=== PATIENT | female | born 1955 | race Caucasian/White ===

== ENCOUNTER → 2017-04-20 | Outpatient (REF) ==
[2017-04-20 04:47] LABS: CALCIUM 9.2 mg/dL (8.4-10.2); CREATININE, serum 0.87 mg/dL (0.52-1.25); POTASSIUM 4.5 mmol/L (3.4-5.0)
== END ==
LOC: ZCOL.LAB 04:36
PROVIDERS: Internal Medicine
DX: I11.0 Hypertensive heart disease with heart failure (principal); I50.9 Heart failure, unspecified

== ENCOUNTER → 2017-05-03 | Outpatient (CLI) | payer MEDICARE, MEDICAID ==
[2017-05-03 06:54] LABS: ALBUMIN 3.1 gm/dL (3.5-5.0); BILIRUBIN,TOTAL 0.4 mg/dL (0.0-1.0); CALCIUM 9.1 mg/dL (8.4-10.2); CREATININE, serum 0.74 mg/dL (0.52-1.25); POTASSIUM 4.4 mmol/L (3.4-5.0)
[2017-05-03 07:03] LABS: BASO % 0.8 % (0.0-2.0); EOS # 0.3 (0.0-0.7); EOS % 5.2 % (0-4.0); GRAN # 3.1 (1.4-6.5); GRAN % 61.2 % (42.2-75.2); HEMATOCRIT 38.4 % (37.0-47.0); LYMPH # 1.2 (1.2-3.4); MEAN CELL VOLUME 86 fl (80.0-100.0); MEAN CORPUSCULAR HEMOGLOBIN 25 pg (27.0-31.0); MEAN CORPUSCULAR HGB CONC 29 g/dl (33.0-37.0); MEAN PLATELET VOLUME 10.9 fl (7.4-10.4); MONO # 0.4 (0.1-0.6); MONO % 8.4 % (1.7-9.3); PLATELET COUNT 222 K/mm3 (130-400); RED BLOOD COUNT 4.48 M/mm3 (4.10-5.30); REDCELL DISTRIBUTION WIDTH-CV 21.9 % (11.5-14.5)
[2017-05-03 07:20] LABS: HEMOGLOBIN 11.3 g/dl (12.5-16.0)
== END ==
LOC: ZCOL.LAB 06:32
PROVIDERS: Family Medicine
DX: I11.0 Hypertensive heart disease with heart failure (principal); I50.9 Heart failure, unspecified

== ENCOUNTER → 2017-05-03 | Outpatient (CLI) | payer MEDICARE, MEDICAID ==
[2017-05-03 21:38] LABS: COLLECTION METHOD CLEAN CATCH
[2017-05-03 21:54] LABS: MUCOUS Present /lpf; PH 5 (5-8); URINE APPEARANCE Hazy; URINE BACTERIA Rare /hpf; URINE BILIRUBIN Negative (NEGATIVE); URINE BLOOD Negative (NEGATIVE); URINE COLOR Yellow; URINE GLUCOSE Negative (NEGATIVE); URINE KETONE Negative (NEGATIVE); URINE LEUKOCYTE ESTERASE 3+ (NEGATIVE); URINE NITRATE Negative (NEGATIVE); URINE PROTEIN(semi-quant) Negative (NEGATIVE); URINE UROBILINOGEN Negative (NEGATIVE)
== END ==
LOC: ZCOL.LAB 21:06
PROVIDERS: Internal Medicine
DX: N39.0 Urinary tract infection, site not specified (principal)

== ENCOUNTER → 2017-05-07 | Outpatient (CLI) | payer MEDICARE, MEDICAID | LOC: ZCOL.LAB 07:38 | DX: Z01.89 Encounter for other specified special examinations (principal) ==

== ENCOUNTER → 2017-05-07 | Outpatient (CLI) | payer MEDICARE, MEDICAID ==
[2017-05-07 09:39] LABS: CHOLESTEROL RISK RATIO 3.7
== END ==
LOC: ZCOL.LAB 09:28
PROVIDERS: Internal Medicine
DX: I50.9 Heart failure, unspecified (principal)

== ENCOUNTER → 2017-05-16 | Outpatient (CLI) | payer MEDICARE, MEDICAID ==
[2017-05-16 11:42] LABS: BASO % 0.8 % (0.0-2.0); EOS # 0.2 (0.0-0.7); EOS % 4.9 % (0-4.0); GRAN # 3.1 (1.4-6.5); GRAN % 63.5 % (42.2-75.2); HEMATOCRIT 38.2 % (37.0-47.0); LYMPH # 0.9 (1.2-3.4); LYMPH % 18.6 % (20.0-51.0); MEAN CELL VOLUME 86 fl (80.0-100.0); MEAN CORPUSCULAR HEMOGLOBIN 26 pg (27.0-31.0); MEAN CORPUSCULAR HGB CONC 31 g/dl (33.0-37.0); MEAN PLATELET VOLUME 10.6 fl (7.4-10.4); MONO # 0.6 (0.1-0.6); MONO % 11.8 % (1.7-9.3); PLATELET COUNT 236 K/mm3 (130-400); RED BLOOD COUNT 4.43 M/mm3 (4.10-5.30); REDCELL DISTRIBUTION WIDTH-CV 20.6 % (11.5-14.5)
[2017-05-16 11:43] LABS: HEMOGLOBIN 11.7 g/dl (12.5-16.0)
[2017-05-16 12:01] LABS: ALBUMIN 3.2 gm/dL (3.5-5.0); BILIRUBIN,TOTAL 0.3 mg/dL (0.0-1.0); CALCIUM 9.2 mg/dL (8.4-10.2); CREATININE, serum 0.98 mg/dL (0.52-1.25); POTASSIUM 4.3 mmol/L (3.4-5.0); TOTAL PROTEIN 6.1 gm/dL (6.4-8.2)
== END ==
LOC: ZCOL.LAB 11:39
PROVIDERS: Urology
DX: I11.0 Hypertensive heart disease with heart failure (principal); I50.9 Heart failure, unspecified